=== PATIENT | female | born 1985 | race African-American/Black ===

== ENCOUNTER 2016-08-17 20:42 | Emergency (ER) | payer OTHER ==
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
[~2016-08-17 20:42] MED LIST: PHENERGAN12.5 MG PO
== END 2016-08-17 23:14 | disposition home or self-care (01) ==
LOC: CFTX 20:42
DX: S09.90XA Unspecified injury of head, initial encounter (principal); S13.4XXA Sprain of ligaments of cervical spine, initial encounter; S23.3XXA Sprain of ligaments of thoracic spine, initial encounter; I10 Essential (primary) hypertension; V49.00XA Driver injured in collision with unspecified motor vehicles in nontraffic accident, initial encounter; Y93.89 Activity, other specified; Y92.411 Interstate highway as the place of occurrence of the external cause
CPT/HCPCS: 70450; 72040; 72072; 84703; 99284